=== PATIENT | female | born 2000 | race Caucasian/White ===

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

== ENCOUNTER → 2020-02-17 | Outpatient (CLI) | payer OTHER ==
--- NOTE | 2020-02-17 18:54 | REP ---
Clinical: Anatomical evaluation. Comparison: 11/09/2019 . Findings: Examination demonstrates a single live intrauterine in cephalic presentation. motion is identified by technologist. Placenta is noted anterior and grade I without evidence for placenta previa or abruption. Amniotic fluid volume is normal. Cervix measures 3.1 cm in length and appears closed. No evidence for nuchal cord. Gestational age by current measurements 19 weeks 6 days with SHAUNA 07/07/2020 . FHR equals 139 beats per minute. BPD 4.5 cm 19 weeks 5 days HC 17.3 cm 19 weeks 6 days AC 15.0 cm 20 weeks 2 days FL 3.4 cm 20 weeks 3 days HL 3.2 cm 20 weeks 5 days HC/AC ratio 1.16 Estimated weight 344 grams ( 61st percentile). Anatomical assessment demonstrates normal structures including cranium, choroid plexus, cavum, cerebellum/posterior fossa, facial features, lungs, four-chamber heart/ventricular outflow tracts, diaphragm, stomach, cord insertion/three-vessel cord, kidneys/bladder, spine, and extremities. Impression: Single live intrauterine in cephalic presentation demonstrating appropriate estimated weight. Anatomical assessment is complete and normal. No gross abnormalities are identified.
== END ==
LOC: M WHC 09:33
PROVIDERS: ATTEND Advanced Practice Midwife
DX: Z34.92 Encounter for supervision of normal pregnancy, unspecified, second trimester (principal)

== ENCOUNTER → 2020-04-13 | Outpatient (REF) | payer OTHER ==
[2020-04-13 13:31] LABS: HEMATOCRIT 34.4 % (36.0-47.0); MEAN CORPUSCULAR HEMOGLOBIN 28.3 pg (27.0-33.0); MEAN CORPUSCULAR VOLUME 88.4 fl (80.0-96.0); PLATELET COUNT, AUTOMATED 360 10^3/uL (150-450); RED BLOOD COUNT 3.89 10^6/uL (4.00-5.40); WHITE BLOOD COUNT 14.7 10^3/uL (4.0-10.0)
== END ==
LOC: M PLALAB 10:48
PROVIDERS: ATTEND Specialist
DX: Z34.02 Encounter for supervision of normal first pregnancy, second trimester (principal)

== ENCOUNTER → 2020-05-18 | Outpatient (REF) | payer OTHER, MEDICAID ==
[2020-07-15 16:27] LABS: ALBUMIN 2.5 GM/DL (3.2-5.2); ALT/SGPT 17 U/L (12-78); BILIRUBIN,DIRECT < 0.1 MG/DL (0.0-0.2); BILIRUBIN,TOTAL 0.2 MG/DL (0.2-1.0); TOTAL PROTEIN 6.6 GM/DL (6.4-8.2)
== END ==
LOC: M SFHCWAGY 15:57
PROVIDERS: ATTEND Advanced Practice Midwife
DX: L29.8 Other pruritus (principal)

== ENCOUNTER → 2020-06-15 | Outpatient (REF) | payer OTHER, MEDICAID | LOC: M LAB REF 16:49 | PROVIDERS: ATTEND Advanced Practice Midwife | DX: Z34.03 Encounter for supervision of normal first pregnancy, third trimester (principal); Z3A.00 Weeks of gestation of pregnancy not specified ==

== ENCOUNTER → 2020-06-16 | Outpatient (CLI) | payer OTHER, MEDICAID ==
--- NOTE | 2020-07-10 10:32 | REP ---
LIMITED OBSTETRICAL ULTRASOUND FOR GROWTH EVALUATION COMPARISON: 02/17/2020. TECHNIQUE: Transabdominal obstetrical ultrasound with color Doppler evaluation. FINDINGS: Ultrasound examination demonstrates a single live advanced gestation in cephalic presentation. motion was identified by the technologist. Placenta noted anteriorly and grade 3 without placenta previa or abruption. Gestational age by last menstrual period (LMP) 36 weeks 6 days. heart rate 149 beats per minute. MEASUREMENTS: BPD 91 mm 37 weeks 0 days HC 317 mm 35 weeks 4 days AC 345 mm 38 weeks 3 days FL 71 mm 36 weeks 2 days HL 67 mm 37 weeks 0 days Estimated age by current measurements 36 weeks 6 days. Estimated weight 3203 grams (70th percentile). Amniotic fluid index equals 19.3 cm. IMPRESSION: Single live advanced gestation in cephalic presentation demonstrating appropriate estimated weight and growth. MTDD
== END ==
LOC: M WHC 11:34
PROVIDERS: ATTEND Advanced Practice Midwife
DX: Z34.82 Encounter for supervision of other normal pregnancy, second trimester (principal)

== ENCOUNTER 2020-06-23 10:42 | Inpatient (IN) | payer MEDICAID, OTHER ==
[~2020-06-23] VITALS: Ht 160 cm; Wt 102.0 kg
[2020-06-23] MEDS ORDERED: LACTATED RINGER'S 1000 ML IV STA (11:14)
[2020-06-23] MEDS ORDERED: LR 1,000 ML IV SCH (11:14)
[2020-06-23 12:02] LABS: HEMATOCRIT 34.7 % (36.0-47.0); HEMOGLOBIN 11.1 g/dl (12.0-15.5); MEAN CORPUSCULAR HEMOGLOBIN 25.8 pg (27.0-33.0); MEAN CORPUSCULAR VOLUME 80.5 fl (80.0-96.0); PLATELET COUNT, AUTOMATED 323 10^3/uL (150-450); RED BLOOD COUNT 4.31 10^6/uL (4.00-5.40); WHITE BLOOD COUNT 16.2 10^3/uL (4.0-10.0)
[2020-06-23] MEDS ORDERED: FENTANYL 2MCG/ML ROPIVACAINE 0.2% IN 0.9% NACL 100ML IVBAG As Ordered ONE (12:20)
[2020-06-23] MEDS ORDERED: ePHEDrine SULFATE 25 MG/5 ML(5MG/ML) SYRINGE IV PRN (14:15)
[2020-06-23] MEDS ORDERED: EPIDURAL COMMENT XX SCH (14:15)
[2020-06-23] MEDS ORDERED: LACTATED RINGER'S 1000 ML IV PRN (14:15)
[2020-06-23] MEDS ORDERED: EPIDURAL/PCA KEYS XX PRN (14:15)
[2020-06-23] MEDS ORDERED: NALOXONE INJ 0.4MG/1ML VIAL (J2310 PER 1MG) IV PRN (14:15)
[2020-06-23] MEDS ORDERED: REFRIGERATOR IV KEYS XX PRN (14:15)
[2020-06-23] MEDS ORDERED: diphenhydrAMINE 50MG/ML VIAL (J1200) IV PRN (14:15)
[2020-06-23] MEDS ORDERED: ONDANSETRON 4MG/2ML VIAL IV PRN (14:15)
[2020-06-23] MEDS ORDERED: FENTANYL/ROPIVACAINE/NACL BAG 100 ML EPIDURAL SCH (14:15)
--- NOTE | 2020-06-23 15:02 | HPEPDOC ---
Obstetrical History & Physical General Date of Admission Jun 23, 2020 at 10:42 Primary Care Physician: ONESIMO HORNER CNM History of Present Illness Vicky is a 19-year-old female who is a at 37.6 weeks gestation with an SHAUNA of 07/08/20. She initiated care at [facility]. No chart is available for re view. Her has been uncomplicated. She had a recent growth ultrasound for size-date discrepancy-size larger than dates. She was seen in the office this morning with complaints of questionable rupture of membranes and painful contractions. She was found to be intact but in labor. She was sent to the hospital for active labor. She reports contractions that became painful starting at 0800, large amounts of vaginal mucus, and active movement. She denies vaginal bleeding. Chief Complaint: Active Labor Information Provided By: Patient Age: 19 : 1 Term: 0 Pre-term: 0 Abortions: 0 Livin Care Care: Good Care Dating Final EDC: Jul 08, 2020 EGA at Admission: 37.6 Antepartum Course Diagnos(e)s teen Height (inches): 63 Admission Weight (lbs.): 224 Past Medical History Past Obstetrical History : Past Obstetrical History: [employer]img[employer] History: No pertinent history Past Medical History Medical History none Surgical History: Denies/None Family History Significant Family History: Diabetes (mother) Social History Marital Status: Single Family situation: Spouse/partner home Psychosocial History: No pertinent psych hx * Smoker: non-smoker Alcohol: Denies Drugs: denies Abuse Violence Screening Have you been hit/kicked/slapp: No Have you been sexually assault: No Allergies Coded Allergies: No Known Allergies (Verified , 06/23/20) Medications Scheduled Vit,Calc76/Iron/Folic (Prenatabs Rx Tablet) 1 Each Tablet, 1 TAB PO DAILY Physical Examination Physical Examination GENERAL: Alert and oriented times three. ABDOMEN: Gravid and non-tender to touch. Palpates moderate with contraction. FETUS: Is vertex (VTX) by sterile vaginal examination (SVE), fetus is vertex (VTX) by Hang. LUNGS: Clear to auscultation (CTA). EXTREMITIES: Generalized edema with + pitting in feet. No clonus. Deep tendon reflexes (DTRs) + 1. Vital Signs/I&O BP: 142/73; RR: 20; Pulse: 88. Laboratory Data 24H LABS Laboratory Tests 2 06/23/20 10:59: Serology Scanned Report Hepatitis B Testing 06/23/20 11:38: Nucleated Red Blood Cells % (auto) 0.0, Syphilis Serology NONREACTIVE CBC/BMP Laboratory Tests 06/23/20 11:38 Pertinent Laboratoy Data Blood Type: A+ RBC Antibody Screen: Negative HIV: Negative Hepatitis B: Negative Hepatitis C: Negative Rapid Plasma Reagin: Nonreactive Rubella: Immune Chlamydia/Gonorrhea: Negative Group B Streptococcus: Negative Glucose Tolerance Test: 130 Vaginal Examination Dilation: 4 cm Effacement: 100% Station: -2 Presentation: Cephalic presentation Position: Vertex (occiput) Assessment Heart Rate (FHR): 135 Variability: Moderate Accelerations: Positive Decelerations: None Tocometer Contractions: Yes Frequency: regular Strength: palpated as moderate Multi-drug resistant Organism: No history of MDRO Assessment/Plan Assessment IUP at 37.6 weeks gestation active labor Category I FHR tracing GBS negative Plan Admit to Labor and delivery. OB ad chris. Diet: clears. Group B Streptococcus (GBS) negative. Labs and intravenous (IV) per unit protocol. Anesthesia consult per patient's request. Lactated Ringers (LR): Bolus 800 mL prior to epidural, then at 125 mL/hr. Anticipate cervical change. C-S as appropriate. ONESIMO HORNER CNM Jun 23, 2020 15:02
--- NOTE | 2020-06-23 15:04 | IPNPDOC ---
Obstetrical Progress Note Date of Service Jun 23, 2020 Subjective Patient is comfortable with her epidural. Objective BP: 121/69; Pulse 84; temperature 98.5; RR: 18 Assessment Heart Rate (FHR): 130 Variability: Moderate Accelerations: None Decelerations: Early Heart Rate Tracing: Category I Tocometer Contractions: Yes Frequency: regular Strength: palpated as strong Sterile Vaginal Examination Dilation: 8 cm Effacement (%): 100% Station: 0 Postion/Presentation: Cephalic presentation Assessment and Plan Age: 19 : 1 Term: 0 Pre-term: 0 Abortions: 0 Livin EGA at Admission: 37.6 Status: Reassuring Group B Streptococcus: Negative Anticipate: Vaginal Delivery Additional Comments AROM to a moderate amount of clear fluid. ONESIMO HORNER CNM Jun 23, 2020 15:04
[2020-06-23] MEDS ORDERED: OXYTOCIN 30 UNITS IN 0.9% NaCl 500ML IV BAG (J2590) As Ordered ONE (15:53)
[2020-06-23] MEDS ORDERED: OXYTOCIN DRIP 30 UNITS in IV 1 EA IV SCH (16:55)
[2020-06-23] MEDS ORDERED: IBUPROFEN 600MG TAB PO PRN (17:00)
[2020-06-23] MEDS ORDERED: DIBUCAINE 1% OINTMENT 30GM TOP PRN (17:00)
[2020-06-23] MEDS ORDERED: IBUPROFEN 800 MG TAB PO PRN (17:00)
[2020-06-23] MEDS ORDERED: METHYLERGONOVINE MALEATE 0.2 MG TAB PO PRN (17:00)
[2020-06-23] MEDS ORDERED: ACETAMINOPHEN TAB 650MG DOSE (2X325MG) PO PRN (17:00)
[2020-06-23] MEDS ORDERED: DOCUSATE SODIUM 100 MG CAP PO PRN (17:00)
[2020-06-23] MEDS ORDERED: RHOGAM 300 MCG (1500 IU) INJ (J2790) IM SCH (17:00)
[2020-06-23] MEDS ORDERED: ANUSOL HC CREAM 30GM TOP PRN (17:00)
[2020-06-23] MEDS ORDERED: MEASLES,MUMPS,RUBELLA VACCINE INJ (MMR-II) (90707) SC SCH (17:00)
--- NOTE | 2020-06-23 17:24 | DNPDOC ---
[facility] Delivery Note Delivery Note DATE OF DELIVERY: 06/23/2020 at 1615 PREDELIVERY DIAGNOSIS: 37-6/7 weeks' gestation and labor. POST DELIVERY DIAGNOSIS: Delivered. PROCEDURE: Spontaneous vaginal delivery. MD PSYCHIATRY: Onesimo Rice CNM, MARIAH ANESTHESIA: epidural. ESTIMATED BLOOD LOSS: 400 mL. FINDINGS: 8 pounds; 3640 grams; male , Score 9/9. DELIVERY SUMMARY: Patient is now a at 37.6 weeks who presented to L&D in active labor. Vicky requested an epidural for pain management. She progressed to fully dilated at 1606 and pushed to a living male in the VASYL position with restitution to LOT. The anterior shoulder delivered and the corpus immediately followed at 1615. The baby was placed skin to skin, active and crying. The cord was clamped x2 after 2 minutes and cut by the FOB. The placenta delivered spontaneously and intact at 1621. Uterine hemostasis was achieved via rapid infusion of IV Pitocin and fundal massage. The perineum, cervix, and vagina was inspected and found to have a 2nd degree perineal laceration and bilateral periurethral lacerations. The 2nd degree perineal laceration was repaired with a 3.[address]-1 and the periurethral laceration was repaired with a 4.0 Vicryl rapide RB-1. Good hemostasis was noted. They plan on naming their Onur and she plans to breastfeed him. All counts of instruments, sharps and sponges are correct. Both mom and baby are in stable condition. ONESIMO RICE CNM Jun 23, 2020 17:23
[2020-06-23] MEDS ORDERED: SLF 3 ML SYR IV PRN (17:30)
[2020-06-23 18:31] VITALS: BP 133/73
[2020-06-23] MEDS: SLF 3 ML SYR IV SCH (22:00)
[2020-06-23] MEDS: ACETAMINOPHEN 500 MG TAB PO PRN (23:54)
[2020-06-24 06:00] VITALS: BP 126/71
[2020-06-24] MEDS: SLF 3 ML SYR IV SCH ×2 (06:00→15:07)
[2020-06-24] MEDS: PRENATAL VITAMINS CHEWABLE TABLET PO SCH (08:47)
[2020-06-24] MEDS: ACETAMINOPHEN 500 MG TAB PO PRN (08:47)
[2020-06-24] MEDS ORDERED: INFLUENZA QUADRIVALENT PF VACCINE 0.5ML SYRINGE IM ONE (09:00)
--- NOTE | 2020-06-24 14:08 | IPNPDOC ---
Progress Note Date of Service: Jun 24, 2020 Day#: 1 Progress Note SUBJECT: Doing well without complaints. Ambulating, voiding and pain is well-c ontrolled. Reports minimal lochia. OBJECTIVE: VITAL SIGNS: Within normal limits, afebrile. Alert and oriented times three. Abdomen: Fundus firm at U-2. Soft, NTTP. Ext: neg calf tenderness. ASSESSMENT: day #1 status post normal spontaneous vaginal delivery. Recovering in stable condition. PLAN: 1. Continue routine care 2. Discharge plans for tomorrow VS, I&O, 24H, Fishbone Vital Signs/I&O Vital Signs Date Time Temp Pulse Resp B/P (MAP) Pulse Ox O2 Delivery O2 Flow Rate FiO2 06/24/20 06:00 98.7 91 18 126/71 (89) I&O- Last 24 Hours up to 6 AM 06/24/20 06:00 Intake Total 800 ml Output Total 400 ml Balance 400 ml MARGARITO LOVETT MD. Jun 24, 2020 14:08
[2020-06-24 18:00] VITALS: BP 129/65
[2020-06-25] MEDS: ACETAMINOPHEN 500 MG TAB PO PRN (01:08)
[2020-06-25 06:00] VITALS: BP 117/70
[2020-06-25] MEDS: PRENATAL VITAMINS CHEWABLE TABLET PO SCH (07:46)
== END 2020-06-25 12:15 | disposition home or self-care (01) | DRG 560 ==
LOC: M LDI 10:42 → M OBS 18:19
PROVIDERS: ADMIT Advanced Practice Midwife; ATTEND Advanced Practice Midwife
PROC: 10E0XZZ Delivery of Products of Conception, External Approach (ICD-10-PCS; principal; 2020-06-23)
PROC: 0KQM0ZZ Repair Perineum Muscle, Open Approach (ICD-10-PCS; 2020-06-23)
PROC: 10907ZC Drainage of Amniotic Fluid, Therapeutic from Products of Conception, Via Natural or Artificial Opening (ICD-10-PCS; 2020-06-23)
DX: O70.1 Second degree perineal laceration during delivery (principal); Z3A.37 37 weeks gestation of pregnancy; Z37.0 Single live birth

== ENCOUNTER → 2020-11-14 | Outpatient (CLI) | payer SELFPAY | LOC: M LABSMTC 10:29 | PROVIDERS: ATTEND Pediatrics | DX: Z20.822 Contact with and (suspected) exposure to COVID-19 (principal) ==

== ENCOUNTER → 2023-01-07 | Outpatient (CLI) | payer OTHER | LOC: M WHC 13:48 | PROVIDERS: ATTEND Family Medicine | DX: N63.20 Unspecified lump in the left breast, unspecified quadrant (principal) ==

== ENCOUNTER → 2023-09-24 | Outpatient (REF) | payer OTHER | LOC: M PLALAB 11:01 | PROVIDERS: ATTEND Advanced Practice Midwife | DX: Z12.4 Encounter for screening for malignant neoplasm of cervix (principal) ==

== ENCOUNTER 2025-01-09 16:05 | Emergency (ER) | payer OTHER ==
[~2025-01-09] VITALS: Ht 157.5 cm; Wt 109.7 kg
[2025-01-09 16:08] VITALS: TEMP 98
[2025-01-09 17:02] LABS: KETONE, URINE AUTO RFX NEGATIVE (NEGATIVE); LEUKOCYTE ESTERASE UR AUTO RFX 3+ (NEGATIVE); NITRITE, URINE AUTO RFX NEGATIVE (NEGATIVE); RBC, URINE AUTO RFX 6 /HPF (0-3); SQUAM EPITHELIAL CELL UR AURFX 4 /HPF (0-6); WBC, URINE AUTO RFX 56 /HPF (0-3)
[2025-01-09 17:45] LABS: HEMATOCRIT 41.5 % (36.0-47.0); HEMOGLOBIN 14.1 g/dl (12.0-15.5); MEAN CORPUSCULAR HEMOGLOBIN 30.1 pg (27.0-33.0); MEAN CORPUSCULAR VOLUME 88.7 fl (80.0-96.0); PLATELET COUNT, AUTOMATED 348 10^3/uL (150-450); RED BLOOD COUNT 4.68 10^6/uL (4.00-5.40)
[2025-01-09] MEDS: ONDANSETRON 4MG 2ML VIAL IV ONE (17:54)
[2025-01-09] MEDS: KETOROLAC 30 MG/ML 1ML VIAL IV ONE (17:58)
[2025-01-09 18:08] LABS: HCG, SERUM QUALITATIVE NEGATIVE (NEGATIVE)
[2025-01-09 18:09] LABS: ALBUMIN 3.4 G/DL (3.2-5.2); ALKALINE PHOSPHATASE 67 U/L (35-104); ALT/SGPT 35 U/L (7.0-40); AST/SGOT 20 U/L (<34); BILIRUBIN,TOTAL 0.3 MG/DL (0.3-1.2); BLOOD UREA NITROGEN 13 MG/DL (9-23); CALCIUM LEVEL 8.6 MG/DL (8.5-10.1); CARBON DIOXIDE LEVEL 26 MMOL/L (20-31); CHLORIDE LEVEL 108 MMOL/L (98-107); CREATININE FOR GFR 0.66 MG/DL (0.55-1.30); GLOMERULAR FILTRATION RATE > 60.0 (>60); GLUCOSE, FASTING 88 MG/DL (60-100); POTASSIUM SERUM 4.2 MMOL/L (3.5-5.1); SODIUM LEVEL 142 MMOL/L (136-145); TOTAL PROTEIN 7.1 G/DL (5.7-8.2)
[2025-01-09 18:18] LABS: Trichomonas vaginalis (AMP) NOT DETECTED (NEGATIVE)
[2025-01-09] MEDS ORDERED: CEFD1CAP9 PO (18:37)
[2025-01-09 18:41] LABS: GC DNA AMPLIFICATION NEGATIVE (NEGATIVE)
[2025-01-09] MEDS: cefTRIAXone SOD 1 GM in DEXTROSE 5% (D5W) ADV/MINI-BAG 50 ML IV ONE (19:04)
[2025-01-09 19:39] VITALS: BP 118/72; O2SAT 97
== END 2025-01-09 19:45 | disposition home or self-care (01) ==
LOC: M ED 16:05
DX: N10 Acute pyelonephritis (principal)
CPT/HCPCS: 74176; 80053; 81001; 84703; 85027; 87088; 87186; 87661; 87810; 87850; 96374; 96375; 99283; J0696; J1885; J2405